=== PATIENT | male | born 1995 | race Caucasian/White ===

== ENCOUNTER 2019-05-29 21:18 | Emergency (ER) | payer SELFPAY ==
[~2019-05-29] VITALS: Ht 180.3 cm; Wt 68.2 kg
[2019-05-29 21:36] VITALS: BP 143/87; Ht 180.3 cm; Wt 68.2 kg
--- NOTE | 2019-05-29 22:46 | NUR ---
DR LAIRD NOTIFIED OF PT's BEHAVIOR AND ASSESSMENT RESULTS, PT IS A LOW RISK PER DR LAIRD. DR LAIRD STATED TO GIVE RESOURCES TO PT AT TIME OF DISCHARGE. NO FURTHER ORDERS AT AT THIS TIME. REVIEWED RESOURCES WITH PT AND HE VERBALIZED UNDERSTANDING.
== END 2019-05-29 22:42 | disposition home or self-care (01) ==
LOC: D.ER 21:18
DX: S61.512A Laceration without foreign body of left wrist, initial encounter (principal); F41.8 Other specified anxiety disorders; X78.9XXA Intentional self-harm by unspecified sharp object, initial encounter; Y93.9 Activity, unspecified; Y92.9 Unspecified place or not applicable